=== PATIENT | female | born 1955 | race Caucasian/White ===

== ENCOUNTER → 2021-02-21 | Outpatient (REF) | payer MEDICARE, MEDICAID ==
[2021-02-21 17:39] LABS: MALB URINE SIEMENS 7.4 MG/L; MAU/CREAT RATIO 12.9 MCG/MG (0.0-30.0)
== END ==
LOC: M LAB REF 16:35
PROVIDERS: ATTEND Nurse Practitioner Family
DX: E11.65 Type 2 diabetes mellitus with hyperglycemia (principal)

== ENCOUNTER → 2022-05-16 | Outpatient (REF) | payer MEDICARE, MEDICAID ==
[2022-05-16 19:14] LABS: MALB URINE SIEMENS 26.9 MG/L; MAU/CREAT RATIO 20.8 MCG/MG (0.0-30.0)
== END ==
LOC: M LAB REF 16:46
PROVIDERS: ATTEND Nurse Practitioner Family
DX: E11.65 Type 2 diabetes mellitus with hyperglycemia (principal)